=== PATIENT | male | born 1965 | race Caucasian/White ===

== ENCOUNTER 2025-05-15 09:51 | Outpatient (REF) | payer BC, SELFPAY ==
--- NOTE | ~2025-05-15 | US_ITS ---
CLINICAL HISTORY: CKD IIIA US retroperitoneum with color Doppler Comparison: None Findings: Right kidney normal size and echotexture, 10.9 cm length. No hydronephrosis. Normal color flow. Renal cortical cyst upper pole measuring 1.6 x 1.6 x 1.5 cm. No nephrolithiasis. Left kidney normal size and echotexture, 12.9 cm in length. No hydronephrosis. Normal color flow. Renal cortical cyst lower pole measuring 1.0 x 1.2 x 1.0 cm with internal echoes.. No nephrolithiasis. Urinary bladder is unremarkable. Prevoid volume 172.0 mL. Postvoid volume 3.7 mL. Ureteral jets are visualized bilaterally Prostate gland measures 2.8 x 4.6 x 3.9 cm Impression: 1. Bilateral probable renal cortical cysts can not be better characterize with CT or MRI with and without contrast renal protocol study. 2. Normal bladder. 3. Prostate volume at 26.7 mL This document has been electronically signed by: Helio Jang MD on 05/16/2025 10:18:28
== END 2025-05-15 09:52 | disposition home or self-care (01) ==
LOC: HO.HMGCX 09:51
PROVIDERS: PCP Internal Medicine; Visit Provider Internal Medicine
DX: N18.31 Chronic kidney disease, stage 3a (principal)
CPT/HCPCS: 76770

== ENCOUNTER → 2025-05-15 10:00 | Outpatient (BNV) | payer BC, SELFPAY | PROVIDERS: PCP Internal Medicine; Visit Provider Radiology Diagnostic Radiology | DX: N18.31 Chronic kidney disease, stage 3a (principal) | CPT/HCPCS: 76770 ==